=== PATIENT | female | born 1965 | race Caucasian/White ===

== ENCOUNTER → 2024-08-21 14:56 | Outpatient (REF) | payer OTHER, SELFPAY | LOC: HWRAD 14:56 | PROVIDERS: ATTENDING PHYSICIAN Physician Assistant; FAMILY PHYSICIAN Nurse Practitioner Family | DX: E04.2 Nontoxic multinodular goiter (principal) | CPT/HCPCS: 76536 ==

== ENCOUNTER 2025-03-22 11:50 | Emergency (ER) | payer OTHER, SELFPAY ==
[2025-03-22 11:57] VITALS: BP 186/104
[2025-03-22 12:31] LABS: Hematocrit 45.5 % (37.0-47.0); Hemoglobin 15.3 g/dL (12.0-16.0); Mean Corp Hgb Conc. 33.6 g/dL (33.0-37.0); Mean Corpuscular Volume 90.6 fL (81.0-99.0); Nucleated Red Blood Cells % 0 %; Platelet Count 279 10^3/uL (130-400); Red Cell Dist. Width 13.3 % (11.5-14.5)
[2025-03-22 12:38] LABS: APTT 26.0 Sec (23.4-35.0)
[2025-03-22 12:46] LABS: ALT (SGPT) 46 U/L (0-35); AST (SGOT) 31 U/L (14-36); Albumin 4.9 g/dl (3.5-5.0); Alkaline Phosphatase 119 U/L (38-126); Blood Urea Nitrogen 18 mg/dl (7-17); Calcium 10.0 mg/dl (8.4-10.2); Carbon Dioxide 27 mmol/L (22-30); Chloride 104 mmol/L (98-107); Glucose 104 mg/dl (70-99); Potassium 3.9 mmol/L (3.5-5.1); Sodium 138 mmol/L (135-145); Total Protein 7.6 g/dl (6.3-8.2); eGFR > 60.00
[2025-03-22 12:58] LABS: Troponin I < 0.012 ng/ml
--- NOTE | 2025-03-22 14:07 | ED.GENMED ---
History of Present Illness
General
Chief Complaint: Fainting/Passed Out
Source: patient and significant other
Exam Limitations: none
Time Seen by Provider: 03/22/25 13:38
Nursing documentation reviewed up to this point in time: agreed with
History of Present Illness
History of Present Illness:
Patient is a 59-year-old female with past medical history of 'irregular heartbeat' for which she sees cardiology and was told that she has probably had her entire life, IBS-D, who presents to the emergency department accompanied by her from
work for evaluation of symptoms that started while she was at work. 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 She reports that she was in the library with a class of children when she started to feel unwell. Patient reports that
everything seemed to happen all at one time. She reports that she felt dizzy and lightheaded like she was going to pass out. She reports that her vision started to feel like it was going black. Patient reports that she also felt like her heart
was beating irregularly. Patient reports that she was standing at the time of the incident. She reports that she told her coworker and she sat down. Patient denies that she actually syncopized. Patient notes that she went to the school nurse and
they checked her blood pressure and it was elevated to the 180s over 110s. Patient still did not feel improved so her came to pick her up and brought her to the emergency department. At this time the patient still feels a little dizzy.
She reports that she felt nauseated at that time but does not feel nauseated currently. Patient denies headache, vision changes such as blurry vision or double vision. Patient denies chest pain, shortness of breath, abdominal pain, vomiting.
Patient denies recent diarrhea or constipation. Patient denies any numbness, weakness, tingling of her extremities. Patient notes that her mother did suffer from strokes and she is concerned for the same today. Patient notes that she saw her
telehealth coordinator earlier this week and her blood pressure was good. Patient denies history of similar symptoms in the past.
Review of Systems
Review of Systems
All Other Systems: Not applicable
Constitutional: Reports no symptoms
EENT: Reports no symptoms
Respiratory: Reports no symptoms
Cardiac: Reports palpitations; Denies chest pain
ABD/GI: Reports nausea; Denies abdominal pain or vomiting
: Reports no symptoms
Musculoskeletal: Reports no symptoms
Skin: Reports no symptoms
Neurological: Reports dizzy
Endocrine: Reports no symptoms
Hematologic/Lymphatic: Reports no symptoms
Psychiatric: Reports no symptoms
Phy Exam
General Physical Exam
General Presentation: well appearing and no apparent distress
General Skin: warm and dry
General Habitus: normal
General Mental: alert
General Hydration: appears well hydrated
ENT Exam
ENT Exam: EOMI, pharynx normal, neck supple and normocephalic
Eye Exam
Eye Exam: PERRL, cornea clear, conjunctiva normal and other ((+) horizontal nystagmus bilaterally with temporal gaze)
Cardiovascular Exam
Cardiovascular Exam: regular rate/rhythm, no edema, no murmur and normal peripheral pulses
Pulmonary Exam
Pulmonary Exam: lungs clear, no respiratory distress, no rales, no crackles, no rhonchi, no stridor, no wheezing and no cough
Gastrointestinal Exam
Gastrointestinal Exam: normal bowel sounds, non tender, soft, no organomegaly, no pulsatile mass and non distended
Neurological Exam
Neurological Exam: alert, oriented x3, CN II-XII intact, no motor deficits, no sensory deficits, speech normal and cerebellum intact
Musculoskeletal Exam
Musculoskeletal Exam: full ROM and no edema
Skin Exam
Skin Exam: normal color, warm/dry, no rash and no petechia
Psychiatric Exam
Psychiatric Exam: normal mood/affect
Course
Orders/Labs/Results
Orders:
Orders
03/22/25 11:56
Electrocardiogram (*1) Urgent
Reason for Study: Chest Pain
EKG- Treatment ONCE
03/22/25 12:15
Complete Blood Count/With Diff Urgent
Comprehensive Metabolic Panel Urgent
PTT Urgent
Troponin I Urgent
03/22/25 14:07
Meclizine [Antivert] 25 mg PO NOW STA
03/22/25 15:55
Troponin I Urgent
Abnormal Lab Results
03/22/25
12:15
BUN 18 H mg/dl
(7-17)
Glucose 104 H mg/dl
(70-99)
ALT 46 H U/L
(0-35)
03/22/25 12:15
03/22/25 12:15
Vital Signs
Initial and Last Documented VS:
Initial Vital Signs
Temp Pulse Resp BP Pulse Ox
98.3 F 72 18 186/104 96
03/22/25 11:57 03/22/25 11:57 03/22/25 11:57 03/22/25 11:57 03/22/25 11:57
Last Documented Vital Signs
Temp Pulse Resp BP Pulse Ox
98.3 F 76 18 132/96 100
03/22/25 11:57 03/22/25 16:00 03/22/25 15:00 03/22/25 16:00 03/22/25 16:00
*Pulse Oximetry
SaO2: 96
Oxygen Mode of Delivery: Room air
Patient hypoxic: no
*Critical Care Note
Total Time (30-74mins, 75-104mins- exclusive of procedures): Not Applicable
Update Note
Update Note:
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
Patient reports that she felt lightheaded, dizzy, like she was going to pass out. She reports that she also felt nauseated. Patient denies that she had chest pain, shortness of breath, abdominal pain. Patient reports that her symptoms are
significantly improved on arrival to the emergency department but she still has some mild dizziness. On arrival, patient is hypertensive, she denies history of hypertension, she is afebrile. On examination the patient is well-appearing, she is in
no acute distress, she has no focal neurological deficits, she does have bilateral horizontal nystagmus which reproduces the patient's dizziness raising the possibility of benign positional vertigo. While the patient was in the waiting room she had
an EKG which demonstrates no acute ischemic changes, no evidence of dysrhythmia. Labs are nonactionable. I have low suspicion for TIA or CVA at this time given the patient's reassuring history and neurological exam, I discussed this with the
patient who states that she does have a family history and was particularly concerned especially when she noted her blood pressure. I suspect that patient could have benign positional vertigo and that the stress of the symptoms may have transiently
raised her blood pressure. I will give the patient a dose of meclizine, check a second troponin, and reassess.
16:55 On reevaluation, patient's blood pressure has improved to 132/96. She reports her dizziness is improved after the administration of meclizine. Pt made aware of second negative troponin, obtained three hours after the initial. At this time,
I feel that the patient is safe for discharge to home with close outpatient f/u with her PCP and her telehealth coordinator, along with strict return precautions. Pt and her expressed understanding of the plan and agreed.
ED Attending Note
-
Portions of this chart may have been created with voice recognition software.� Occasional wrong word or��sound alike� substitutions may have occurred due to the inherent limitations of voice recognition software.
Discharge Plan
Departure
Patient Disposition: Home (Routine Discharge)
Date of Disposition: 03/22/25
Time of Disposition: 16:47
Patient with high blood pressure during this ER visit?: No
Condition: Good
Discharge Problem:
Near syncope
Instructions: Near Fainting (DC), Vertigo - ED (DC)
Referrals:
Iveth Michaud CRNP [Family Provider, Internal Medicine] - Follow up in 2-3 days
Activity Restrictions/Additional Instructions:
You were seen in the emergency department for evaluation of feeling like you going to pass out associated with some dizziness. Your blood pressure was also found to be elevated at that time. While you were in the emergency department you had an
EKG and blood work. No dangerous abnormalities were found. Your blood pressure improved with time. Your lightheadedness improved with a medication called meclizine 25 mg which you may take at home if needed for persistent or recurrent dizziness.
Please try to get plenty of rest and drink plenty of fluids. Please follow up closely with your primary care provider as well as your telehealth coordinator within the next 2 to 3 days for reevaluation. Please return to the emergency department if you did
pass out or feel you are going to pass out, if you have a severe headache, if you have vision changes such as blurry vision or double vision, if you have chest pain, shortness of breath or difficulty breathing, persistent vomiting, numbness,
weakness, tingling of 1 or more of your extremities, or for any other worsening or concerning symptoms.
Interventions
Interventions:
*Risk Screen - Suicide Last Done: 03/22/25 11:57
Discharge Date and Time
Print Language: URDU
[2025-03-22] MEDS: ANTIVERT 25 MG PO (14:58)
[2025-03-22 15:00] VITALS: BP 146/91
[2025-03-22 16:00] VITALS: BP 132/96
[2025-03-22 16:42] LABS: Troponin I < 0.012 ng/ml
== END 2025-03-22 16:55 | disposition home or self-care (01) ==
LOC: EMR 11:50
PROVIDERS: Emergency Medicine; Physician Assistant Medical; EMERGENCY PHYSICIAN Emergency Medicine; FAMILY PHYSICIAN Nurse Practitioner Family
DX: R55 Syncope and collapse (principal); R42 Dizziness and giddiness
CPT/HCPCS: 99284; 80053; 84484; 85025; 85730; 93005